=== PATIENT | male | born 1990 | race Asian ===

== ENCOUNTER 2017-09-03 13:56 | Emergency (ER) | payer SELFPAY ==
[~2017-09-03] VITALS: Ht 180.3 cm; Wt 79.4 kg
[2017-09-03] MEDS ORDERED: IBUPROFEN600 MG ORAL (14:28)
[2017-09-03] MEDS ORDERED: PROMETHAZINE-D118 ML ORAL (14:28)
[2017-09-03] MEDS ORDERED: Acetaminophen 500mg (ES) tab ORAL ONE (14:30)
[2017-09-03 17:36] VITALS: BP 143/86
--- NOTE | 2017-09-03 20:32 | Emergency Room Report ---
History of Present Illness General Chief Complaint: General Complaint Source: Patient Present Illness [facility] The patient is a 27-year-old male presenting for 5 days of cough, sore throat, fatigue, headache. He states that cough is productive with blood-tinged sputum. he denies any recent travel or known sick contacts. He states that he also had his BP checked and was concerned because it was elevated. He denies any other symptoms including SOB, CP, abd pain, dizziness, blurred vision, neck pain/stiffness Allergies: Coded Allergies: No Known Allergies (Unverified , 09/03/17) Patient History Past Medical History: see triage record Pertinent Family History: none Reviewed Nursing Documentation: PMH: Agreed, PSxH: Agreed Nursing Documentation-PMH Past Medical History: No Stated History Review of Systems All Other Systems: negative except mentioned in HPI Physical Exam Vital Signs Date Time Temp Pulse Resp B/P (MAP) Pulse Ox O2 Delivery O2 Flow Rate FiO2 09/03/17 14:10 98.2 62 16 135/86 99 Room Air Sp02 EP Interpretation: reviewed, normal General Appearance: no apparent distress, alert, GCS 15, non-toxic Head: normocephalic, atraumatic Eyes: bilateral eye normal inspection, bilateral eye PERRL ENT: no angioedema, normal voice, uvula midline, nasal congestion, pharyngeal erythema Neck: full range of motion, supple/symm/no masses Respiratory: chest non-tender, lungs clear, normal breath sounds, speaking full sentences Musculoskeletal: back normal, gait/station normal, normal range of motion, non- tender Neurologic: alert, oriented x3, responsive, motor strength/tone normal, sensory intact, speech normal Psychiatric: judgement/insight normal, memory normal, mood/affect normal, no suicidal/homicidal ideation Skin: normal color, no rash, warm/dry, well hydrated Medical Decision Making PA Attestation Dr. Mccormick is my supervising physician. Patient management was discussed with my supervising physician Diagnostic Impression: Primary Impression: Pharyngitis Qualified Codes: J02.9 - Acute pharyngitis, unspecified ER Course The patient is a 27-year-old male presenting for 5 days of cough, sore throat, fatigue, headache Differential diagnosis include but not limited to pharyngitis, sinusitis, AOM, bronchitis, PNA Physical exam: Vitals within normal limits. Afebrile. No apparent distress HEENT exam: There is bilateral tonsillar edema, erythema, and exudate. Uvula midline. Moist mucous membranes. There is bilateral cervical lymphadenopathy. Lungs are clear to auscultation bilaterally Skin is warm and dry. No rash The patient will be discharged home with a prescription for cough medication and motrin and is given ER precautions. Patient will followup with primary care Last Vital Signs Date Time Temp Pulse Resp B/P (MAP) Pulse Ox O2 Delivery O2 Flow Rate FiO2 09/03/17 17:36 98.2 88 17 143/86 99 Room Air Status: improved Disposition: HOME, SELF-CARE Condition: Improved Scripts D-Methorphan Hb/Prometh Hcl* (PROMETHAZINE-DM SYRUP*) 118 Ml Syrup 5 ML ORAL Q6H Y for For Cough, #118 ML 0 Refills Prov: DOMINIQUE POLO 09/03/17 Ibuprofen* (MOTRIN*) 600 Mg Tablet 600 MG ORAL Q8H Y for For Pain, #30 TAB 0 Refills Prov: DOMINIQUE POLO 09/03/17 Referrals: NOT CHOSEN IPA/,REFERRING (PCP) Patient Instructions: Pharyngitis Additional Instructions: I discussed my findings with the patient. All questions and concerns have been answered. Treatment and medication compliance have been addressed. I advised the patient that they need to follow up with PMD in 3-5 days. Return to ED if pain remains or worsens, cough worsens or remains, you notice blood in your sputum, you notice wheezing, you experience a fever, or if needed for any reason. Patient verbalized understanding of discharge instructions. DOMINIQUE POLO Sep 03, 2017 20:32
== END 2017-09-03 15:30 | disposition home or self-care (01) ==
LOC: EMR 14:25
DX: J02.9 Acute pharyngitis, unspecified (principal)
CPT/HCPCS: 99283